=== PATIENT | male | born 1985 | race African-American/Black ===

== ENCOUNTER 2016-11-08 20:27 | Emergency (ER) | payer SELFPAY ==
[2016-11-08 20:27] VITALS: BP 138/86; PULSE 69; RESP 16; TEMP 98.1; O2SAT 96
[~2016-11-08 20:27] MED LIST: LOMO PO; ZOFR4TAB3 SL
== END 2016-11-08 23:49 | disposition left against medical advice (07) ==
LOC: NED 20:27
DX: R07.9 Chest pain, unspecified (principal)
CPT/HCPCS: 99281